=== PATIENT | male | born 2000 | race Caucasian/White ===

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

== ENCOUNTER 2022-09-03 21:39 | Emergency (ER) | payer OTHER ==
[~2022-09-03] VITALS: Ht 170.2 cm; Wt 98.4 kg
[2022-09-03 21:43] VITALS: BP 139/90
--- NOTE | 2022-09-03 22:11 | NUR ---
Dr. Drake examining patient.
[2022-09-03 22:38] VITALS: BP 144/90
--- NOTE | 2022-09-03 22:38 | NUR ---
Patient discharged with v/s stable. Written and verbal after care instructions given and explained. Patient verbalized understanding. Ambulatory with steady gait. All questions addressed prior to discharge. Advised to follow up with PMD.
== END 2022-09-03 22:38 | disposition home or self-care (01) ==
LOC: MED 21:39
DX: F41.9 Anxiety disorder, unspecified (principal)
CPT/HCPCS: 99281

== ENCOUNTER 2022-09-11 10:47 | Emergency (ER) | payer OTHER ==
[~2022-09-11] VITALS: Ht 170.2 cm; Wt 98.9 kg
[2022-09-11 10:53] VITALS: BP 145/90
--- NOTE | 2022-09-11 10:55 | NUR ---
Patient ambulated to bed 03 with steady/even gait.
--- NOTE | 2022-09-11 10:58 | NUR ---
21 y/o M BIB self from home c/o SOB since last night before bed. Patient A&Ox4, ambulatory, states recent work stressors causing patient unable to sleep. Pt reports unable to catch breath before bedtime. Lung sounds CTA. Denies chest pain, cough, fever, chills, nausea, vomiting, diarrhea, constipation. Denies medications prior to arrival. PCP appt scheduled 09/23/22. Bed locked in lowest position, side rails x 1. PMH/Sx/Meds: anxiety NKDA
--- NOTE | 2022-09-11 12:12 | NUR ---
Dr. Quezada reevaluating patient at bedside
[2022-09-11] MEDS ORDERED: ATA25 PO (12:26)
--- NOTE | 2022-09-11 12:34 | NUR ---
Patient discharged with v/s stable. Written and verbal after care instructions given and explained for Panic Attack and Shortness of Breath, Adult. Patient alert, oriented and verbalized understanding of instructions. Ambulatory with steady gait. All questions addressed prior to discharge. ID band removed. Patient advised to follow up with PMD. Rx of Atarax given. Patient educated on indication of medication including possible reaction and side effects. Opportunity to ask questions provided and answered. Copy of EKG, XRAY and off work note given to patient.
== END 2022-09-11 12:34 | disposition home or self-care (01) ==
LOC: MED 10:47
DX: R06.02 Shortness of breath (principal); F41.9 Anxiety disorder, unspecified; Z79.899 Other long term (current) drug therapy
CPT/HCPCS: 71045; 93005; 99283

== ENCOUNTER 2023-07-21 17:38 | Emergency (ER) | payer OTHER ==
[~2023-07-21] VITALS: Ht 170.2 cm; Wt 104.3 kg
[~2023-07-21 17:38] MED LIST: ATA25 PO
[2023-07-21 17:53] VITALS: BP 147/84; PULSE 81; RESP 18; TEMP 96.1; O2SAT 97
[2023-07-21 20:00] VITALS: BP 120/78; PULSE 76; RESP 16; TEMP 97.6; O2SAT 100
== END 2023-07-21 20:00 | disposition home or self-care (01) ==
LOC: MED 17:38
DX: R53.83 Other fatigue (principal); Z72.820 Sleep deprivation; Z79.899 Other long term (current) drug therapy
CPT/HCPCS: 99281